=== PATIENT | male | born 1995 | race Caucasian/White ===

== ENCOUNTER 2020-04-05 21:15 | Emergency (ER) | payer BC, OTHER ==
[2020-04-05 21:35] VITALS: BP 125/76; PULSE 81; TEMP 98.1
[2020-04-05] MEDS ORDERED: DIPHTH,PERTUSS(ACELL),TET 0.5 ML DISP.SYRIN IM ONE ×2 (21:46→21:53)
== END 2020-04-05 22:46 | disposition home or self-care (01) ==
LOC: JERFT 21:15
PROC: 3E0234Z Introduction of Serum, Toxoid and Vaccine into Muscle, Percutaneous Approach (ICD-10-PCS; principal; 2020-04-05)
DX: S61.432A Puncture wound without foreign body of left hand, initial encounter (principal); S60.222A Contusion of left hand, initial encounter
CPT/HCPCS: 73130-TC-RT-FY; 90715; 99284-25

== ENCOUNTER 2022-08-11 20:46 | Emergency (ER) | payer OTHER, BC ==
[2022-08-11 20:55] VITALS: BP 132/77; RESP 17; TEMP 98; BMI 34.3
[2022-08-11] MEDS ORDERED: ACETAMINOPHEN 325 MG TABLET (FP) PO ONE (21:58)
[2022-08-11] MEDS ORDERED: ACETAMINOPHEN 325 MG TABLET (FP) ONE (22:06)
[2022-08-11] MEDS ORDERED: LIDOCAINE HCL 1%, 10 MG/ML (50 mL VIAL) INF ONE (22:15)
[2022-08-11] MEDS ORDERED: LIDOCAINE HCL 1%, 10 MG/ML (10ML VIAL) MDV ONE (22:19)
[2022-08-11 23:19] VITALS: PULSE 70
== END 2022-08-11 23:59 | disposition home or self-care (01) ==
LOC: JER 20:46 → JERFT 20:46
PROC: 0HQGXZZ Repair Left Hand Skin, External Approach (ICD-10-PCS; principal; 2022-08-11)
DX: S61.211A Laceration without foreign body of left index finger without damage to nail, initial encounter (principal); W26.0XXA Contact with knife, initial encounter; Y93.G1 Activity, food preparation and clean up
CPT/HCPCS: 73140-TC-LT-FY; 99283-25

== ENCOUNTER 2022-08-30 13:08 | Emergency (ER) | payer BC, OTHER ==
[2022-08-30 13:16] VITALS: BP 123/78; PULSE 72; RESP 18; TEMP 97.6; BMI 33.3
== END 2022-08-30 14:02 | disposition home or self-care (01) ==
LOC: JERFT 13:08
DX: Z48.02 Encounter for removal of sutures (principal)
CPT/HCPCS: 99281-25